=== PATIENT | male | born 1940 | race Caucasian/White ===

== ENCOUNTER 2017-07-12 17:36 | Inpatient (IN) | payer MEDICARE ==
[~2017-07-12] VITALS: Ht 180.3 cm; Wt 94.2 kg
[~2017-07-12 17:36] MED LIST: ASPI81CH PO; ATOR20 PO; Aspir 8181 MG PO; BRILINTA90 MG PO; CALC.25 PO; CLOP75 PO; DIPATR PO; FERR325 PO; GABA600 PO; GLIM2 PO; HEMOTC PR; LISI20 PO; Lotrimin Ultra12 GM EXT; METF500C PO; PIOG15 PO; PROM25 PO; Prilosec Otc20 MG PO; SIMV40 PO; TICA90TA PO; Zocor20 MG PO; Zofran8 MG PO
[2017-07-12 18:40] LABS: BASOPHILS ABSOLUTE AUTO 0.02 K/mm3 (0.00-0.23); BASOPHILS PERCENT AUTO 0 % (0-2); EOSINOPHILS ABSOLUTE AUTO 0.51 K/mm3 (0.00-0.68); EOSINOPHILS PERCENT AUTO 5 % (0-6); Hematocrit 43.8 % (37.0-53.0); IMMATURE GRAN ABSOLUTE AUTO 0.02 K/mm3 (0.00-0.10); IMMATURE GRAN PERCENT AUTO 0 % (0-1); LYMPHOCYTES ABSOLUTE AUTO 2.04 K/mm3 (0.84-5.20); LYMPHOCYTES PERCENT AUTO 19 % (21-46); MONOCYTES ABSOLUTE AUTO 0.78 K/mm3 (0.16-1.47); MONOCYTES PERCENT AUTO 7 % (4-13); Mean Corpuscular HGB 33.7 pg (26.0-34.0); Mean Corpuscular Volume 105 fL (80-100); Mean Platelet Volume 10.1 fL (9.1-12.4); NEUTROPHILS ABSOLUTE AUTO 7.37 K/mm3 (1.96-9.15); NEUTROPHILS PERCENT AUTO 69 % (41-73); Platelet Count 269 K/mm3 (150-400); RDW Coefficient Variation 14.8 % (11.7-14.2); RDW Standard Deviation 57.2 fL (35.1-46.3); Red Blood Cell Count 4.16 M/mm3 (4.30-5.90); White Blood Cell Count 10.74 K/mm3 (4.00-11.30)
[2017-07-12 18:53] LABS: International Normalized Ratio 1.01; Prothrombin Time Results 10.5 Sec (9.7-11.5)
[2017-07-12 19:01] LABS: Alanine Aminotransfer (ALT/SGP 20 U/L (12-78); Albumin, Blood 3.4 g/dL (3.4-5.0); Alk Phos 99 U/L (50-136); Anion Gap 9 mmol/L (6-16); Aspartate Aminotrans (AST/SGOT 19 U/L (12-37); Bilirubin, Total 0.4 mg/dL (0.1-1.0); Blood Urea Nitrogen 19 mg/dL (8-24); Bun/Creatinine Ratio 15.4 (12.0-20.0); CO2, Blood 24 mmol/L (21-32); Chloride, Blood 111 mmol/L (98-108); Creatinine, Blood 1.23 mg/dL (0.60-1.20); Globulin, Blood 3.5 g/dL (2.2-4.0); Glomerular Filtration Rate >60 (60-); Glucose, Blood 73 mg/dL (70-99); Potassium, Blood 3.8 mmol/L (3.5-5.5); Sodium, Blood 144 mmol/L (136-145); Total Protein, Blood 6.9 g/dL (6.4-8.2)
[2017-07-12] MEDS ORDERED: TRAM50 PO (19:05)
[2017-07-13 04:52] LABS: BASOPHILS ABSOLUTE AUTO 0.02 K/mm3 (0.00-0.23); BASOPHILS PERCENT AUTO 0 % (0-2); EOSINOPHILS PERCENT AUTO 4 % (0-6); Hematocrit 41.7 % (37.0-53.0); Hemoglobin 13.3 g/dL (13.5-17.5); IMMATURE GRAN ABSOLUTE AUTO 0.02 K/mm3 (0.00-0.10); IMMATURE GRAN PERCENT AUTO 0 % (0-1); LYMPHOCYTES ABSOLUTE AUTO 2.27 K/mm3 (0.84-5.20); LYMPHOCYTES PERCENT AUTO 25 % (21-46); MONOCYTES PERCENT AUTO 10 % (4-13); Mean Corpuscular HGB 33.8 pg (26.0-34.0); Mean Corpuscular HGB Conc 31.9 g/dL (31.5-36.5); Mean Corpuscular Volume 106 fL (80-100); Mean Platelet Volume 9.9 fL (9.1-12.4); NEUTROPHILS ABSOLUTE AUTO 5.63 K/mm3 (1.96-9.15); NEUTROPHILS PERCENT AUTO 61 % (41-73); Platelet Count 260 K/mm3 (150-400); RDW Coefficient Variation 14.7 % (11.7-14.2); RDW Standard Deviation 57.8 fL (35.1-46.3); Red Blood Cell Count 3.94 M/mm3 (4.30-5.90); White Blood Cell Count 9.24 K/mm3 (4.00-11.30)
[2017-07-13 05:26] LABS: Alanine Aminotransfer (ALT/SGP 15 U/L (12-78); Albumin, Blood 3.2 g/dL (3.4-5.0); Albumin/Globulin Ratio 0.9 (0.8-1.8); Alk Phos 89 U/L (50-136); Anion Gap 6 mmol/L (6-16); Aspartate Aminotrans (AST/SGOT 14 U/L (12-37); Bilirubin, Total 0.5 mg/dL (0.1-1.0); Blood Urea Nitrogen 17 mg/dL (8-24); Bun/Creatinine Ratio 13.8 (12.0-20.0); CO2, Blood 26 mmol/L (21-32); Calcium, Blood 7.8 mg/dL (8.5-10.1); Chloride, Blood 109 mmol/L (98-108); Creatinine, Blood 1.23 mg/dL (0.60-1.20); Globulin, Blood 3.5 g/dL (2.2-4.0); Glomerular Filtration Rate >60 (60-); Glucose, Blood 74 mg/dL (70-99); Potassium, Blood 3.8 mmol/L (3.5-5.5); Sodium, Blood 141 mmol/L (136-145); Total Protein, Blood 6.7 g/dL (6.4-8.2)
[2017-07-14 04:39] LABS: BASOPHILS ABSOLUTE AUTO 0.01 K/mm3 (0.00-0.23); BASOPHILS PERCENT AUTO 0 % (0-2); EOSINOPHILS PERCENT AUTO 0 % (0-6); Hematocrit 40.7 % (37.0-53.0); Hemoglobin 13.1 g/dL (13.5-17.5); IMMATURE GRAN ABSOLUTE AUTO 0.05 K/mm3 (0.00-0.10); IMMATURE GRAN PERCENT AUTO 0 % (0-1); LYMPHOCYTES ABSOLUTE AUTO 0.56 K/mm3 (0.84-5.20); LYMPHOCYTES PERCENT AUTO 5 % (21-46); MONOCYTES ABSOLUTE AUTO 0.35 K/mm3 (0.16-1.47); MONOCYTES PERCENT AUTO 3 % (4-13); Mean Corpuscular HGB 33.4 pg (26.0-34.0); Mean Corpuscular HGB Conc 32.2 g/dL (31.5-36.5); Mean Corpuscular Volume 104 fL (80-100); NEUTROPHILS ABSOLUTE AUTO 11.02 K/mm3 (1.96-9.15); NEUTROPHILS PERCENT AUTO 92 % (41-73); RDW Standard Deviation 53.4 fL (35.1-46.3); Red Blood Cell Count 3.92 M/mm3 (4.30-5.90); White Blood Cell Count 11.99 K/mm3 (4.00-11.30)
[2017-07-14 04:40] LABS: Mean Platelet Volume 9.9 fL (9.1-12.4); Platelet Count 259 K/mm3 (150-400)
[2017-07-14 04:54] LABS: Anion Gap 8 mmol/L (6-16); Blood Urea Nitrogen 17 mg/dL (8-24); Bun/Creatinine Ratio 14.4 (12.0-20.0); CO2, Blood 24 mmol/L (21-32); Calcium, Blood 7.8 mg/dL (8.5-10.1); Chloride, Blood 106 mmol/L (98-108); Creatinine, Blood 1.18 mg/dL (0.60-1.20); Glomerular Filtration Rate >60 (60-); Glucose, Blood 194 mg/dL (70-99); Magnesium, Blood 1.7 mg/dL (1.6-2.4); Potassium, Blood 4.9 mmol/L (3.5-5.5); Sodium, Blood 138 mmol/L (136-145)
== END 2017-07-16 14:11 | DRG 470 ==
LOC: ER 17:36 → SURS 19:20
PROVIDERS: Emergency Medicine; Family Medicine; Internal Medicine; Orthopaedic Surgery
PROC: 8E0YXBZ Computer Assisted Procedure of Lower Extremity (ICD-10-PCS; 2017-07-13)
PROC: 0SRB02Z Replacement of Left Hip Joint with Metal on Polyethylene Synthetic Substitute, Open Approach (ICD-10-PCS; principal; 2017-07-13 15:00)
DX: S72.002A Fracture of unspecified part of neck of left femur, initial encounter for closed fracture (principal); E11.22 Type 2 diabetes mellitus with diabetic chronic kidney disease; E11.51 Type 2 diabetes mellitus with diabetic peripheral angiopathy without gangrene; E78.5 Hyperlipidemia, unspecified; N18.2 Chronic kidney disease, stage 2 (mild); I12.9 Hypertensive chronic kidney disease with stage 1 through stage 4 chronic kidney disease, or unspecified chronic kidney disease; K90.0 Celiac disease; E78.00 Pure hypercholesterolemia, unspecified; G47.00 Insomnia, unspecified; G89.29 Other chronic pain; R25.1 Tremor, unspecified; Z96.89 Presence of other specified functional implants; Z79.82 Long term (current) use of aspirin; Z79.84 Long term (current) use of oral hypoglycemic drugs; Z79.899 Other long term (current) drug therapy; Z88.8 Allergy status to other drugs, medicaments and biological substances
CPT/HCPCS: 36415; 72170; 80048; 80053; 82947; 83735; 83970; 85025; 85610; 85730; 86850; 86900; 86901; 88305; 88311; 93005; 93010; 96374; 96375; 97110; 97163; 97530; 99285; C1713; C1776; G8978; G8979; J0171; J0690; J0735; J1100; J1170; J1650; J1885; J2370; J2405; J2710; J2795; J3010; J7120

== ENCOUNTER → 2017-07-22 | Outpatient (CLI) | payer MEDICARE ==
[~2017-07-22] MED LIST changes: +ACET325 PO; +Durezol5 ML LEFTEYE; +ERGO400 PO; +Flomax0.4 MG PO; +KETO60I LEFTEYE; +Norvasc2.5 MG PO; +Oxycodone-Apap1 EAC3 PO; +PROLENSA3 ML LEFTEYE; +Prednisolone Ace5 ML LEFTEYE; +TRAM50 PO
[2017-07-22 21:32] LABS: Bilirubin, Urine Neg (Neg); Blood, Urine Neg (Neg); Glucose Qualitative, Urine Neg (Neg); Ketones, Urine Neg (Neg); Leukocyte Esterase, Urine Neg (Neg); Nitrite, Urine Neg (Neg); Protein, Urine Neg (Neg); Specific Gravity, Urine 1.015 (1.003-1.022); Urobilinogen, Urine NORM (Normal)
[2017-07-22 21:39] LABS: Appearance, Urine Clear (Clear); Color, Urine Pale Yellow (P-Yellow)
== END | disposition home or self-care (01) ==
LOC: LAB RH 21:21
PROVIDERS: Internal Medicine
DX: N39.0 Urinary tract infection, site not specified (principal)
CPT/HCPCS: 81003; 87086

== ENCOUNTER 2017-08-23 17:52 | Inpatient (IN) | payer MEDICARE ==
[~2017-08-23] VITALS: Ht 177.8 cm; Wt 86.3 kg
[~2017-08-23 17:52] MED LIST changes: -ACET325 PO; -Durezol5 ML LEFTEYE; -ERGO400 PO; -Flomax0.4 MG PO; -KETO60I LEFTEYE; -Norvasc2.5 MG PO; -Oxycodone-Apap1 EAC3 PO; -PROLENSA3 ML LEFTEYE; -Prednisolone Ace5 ML LEFTEYE
[2017-08-23 18:52] LABS: BASOPHILS ABSOLUTE AUTO 0.03 K/mm3 (0.00-0.23); BASOPHILS PERCENT AUTO 0 % (0-2); EOSINOPHILS ABSOLUTE AUTO 0.12 K/mm3 (0.00-0.68); EOSINOPHILS PERCENT AUTO 1 % (0-6); Hematocrit 40.9 % (37.0-53.0); Hemoglobin 12.8 g/dL (13.5-17.5); IMMATURE GRAN ABSOLUTE AUTO 0.05 K/mm3 (0.00-0.10); IMMATURE GRAN PERCENT AUTO 0 % (0-1); LYMPHOCYTES PERCENT AUTO 11 % (21-46); MONOCYTES ABSOLUTE AUTO 0.98 K/mm3 (0.16-1.47); MONOCYTES PERCENT AUTO 7 % (4-13); Mean Corpuscular HGB Conc 31.3 g/dL (31.5-36.5); Mean Corpuscular Volume 102 fL (80-100); Mean Platelet Volume 9.5 fL (9.1-12.4); NEUTROPHILS ABSOLUTE AUTO 11.67 K/mm3 (1.96-9.15); NEUTROPHILS PERCENT AUTO 81 % (41-73); Platelet Count 295 K/mm3 (150-400); RDW Standard Deviation 53.5 fL (35.1-46.3); White Blood Cell Count 14.45 K/mm3 (4.00-11.30)
[2017-08-23] MEDS ORDERED: Oxycodone-Apap1 EAC3 PO (19:08)
[2017-08-23 19:22] LABS: Albumin, Blood 3.6 g/dL (3.4-5.0); Albumin/Globulin Ratio 0.9 (0.8-1.8); Bilirubin, Total 0.4 mg/dL (0.1-1.0); Bun/Creatinine Ratio 9.6 (12.0-20.0); Calcium, Blood 7.7 mg/dL (8.5-10.1); Creatinine, Blood 4.69 mg/dL (0.60-1.20); Globulin, Blood 4.2 g/dL (2.2-4.0); Potassium, Blood 4.4 mmol/L (3.5-5.5); Total Protein, Blood 7.8 g/dL (6.4-8.2)
[2017-08-23] MEDS ORDERED: ERGO400 PO (23:45)
[2017-08-23] MEDS ORDERED: PIOG15 PO (23:48)
[2017-08-23] MEDS ORDERED: KETO60I LEFTEYE (23:49)
[2017-08-23] MEDS ORDERED: Prednisolone Ace5 ML LEFTEYE (23:51)
[2017-08-23] MEDS ORDERED: PROLENSA3 ML LEFTEYE (23:52)
[2017-08-23] MEDS ORDERED: Durezol5 ML LEFTEYE (23:53)
[2017-08-24 05:45] LABS: BASOPHILS ABSOLUTE AUTO 0.03 K/mm3 (0.00-0.23); BASOPHILS PERCENT AUTO 0 % (0-2); EOSINOPHILS ABSOLUTE AUTO 0.47 K/mm3 (0.00-0.68); EOSINOPHILS PERCENT AUTO 4 % (0-6); Hematocrit 37.9 % (37.0-53.0); Hemoglobin 11.9 g/dL (13.5-17.5); IMMATURE GRAN ABSOLUTE AUTO 0.04 K/mm3 (0.00-0.10); IMMATURE GRAN PERCENT AUTO 0 % (0-1); LYMPHOCYTES ABSOLUTE AUTO 1.52 K/mm3 (0.84-5.20); LYMPHOCYTES PERCENT AUTO 12 % (21-46); MONOCYTES ABSOLUTE AUTO 0.97 K/mm3 (0.16-1.47); MONOCYTES PERCENT AUTO 8 % (4-13); Mean Corpuscular HGB 32.1 pg (26.0-34.0); Mean Corpuscular HGB Conc 31.4 g/dL (31.5-36.5); Mean Corpuscular Volume 102 fL (80-100); NEUTROPHILS ABSOLUTE AUTO 9.33 K/mm3 (1.96-9.15); NEUTROPHILS PERCENT AUTO 76 % (41-73); Platelet Count 282 K/mm3 (150-400); RDW Standard Deviation 53.1 fL (35.1-46.3); Red Blood Cell Count 3.71 M/mm3 (4.30-5.90); White Blood Cell Count 12.36 K/mm3 (4.00-11.30)
[2017-08-24 06:12] LABS: Albumin, Blood 3.2 g/dL (3.4-5.0); Albumin/Globulin Ratio 0.8 (0.8-1.8); Bilirubin, Total 0.3 mg/dL (0.1-1.0); Bun/Creatinine Ratio 12.6 (12.0-20.0); Calcium, Blood 7.6 mg/dL (8.5-10.1); Creatinine, Blood 3.65 mg/dL (0.60-1.20); Globulin, Blood 3.8 g/dL (2.2-4.0)
[2017-08-24 06:43] LABS: Potassium, Urine, Random 26.3 mmol/L (12.0-75.0)
[2017-08-24 11:32] LABS: Source, Urine Clean Catch
[2017-08-24 11:35] LABS: Blood, Urine Neg (Neg); Glucose Qualitative, Urine Neg (Neg); Ketones, Urine Neg (Neg); Leukocyte Esterase, Urine 1+ (Neg); Nitrite, Urine Neg (Neg); Protein, Urine 2+ (Neg); Specific Gravity, Urine 1.025 (1.003-1.022); Urobilinogen, Urine NORM (Normal)
[2017-08-24 12:20] LABS: Appearance, Urine Clear (Clear); Bilirubin, Urine 1+ (Neg); Color, Urine Yellow (P-Yellow)
[2017-08-24 12:24] LABS: Red Blood Cells, Urine Not Seen /hpf (0-2); White Blood Cells, Urine 0-2 /hpf (0-5)
[2017-08-24 12:25] LABS: Amorphous Light (0-Heavy); Bacteria Few /hpf; Granular Casts 0-2 /lpf (0); Squamous Epithelial Cells Few /hpf (Few)
[2017-08-25 08:55] LABS: BASOPHILS ABSOLUTE AUTO 0.02 K/mm3 (0.00-0.23); BASOPHILS PERCENT AUTO 0 % (0-2); EOSINOPHILS ABSOLUTE AUTO 0.25 K/mm3 (0.00-0.68); EOSINOPHILS PERCENT AUTO 2 % (0-6); Hematocrit 35.6 % (37.0-53.0); Hemoglobin 11.5 g/dL (13.5-17.5); IMMATURE GRAN ABSOLUTE AUTO 0.04 K/mm3 (0.00-0.10); IMMATURE GRAN PERCENT AUTO 0 % (0-1); LYMPHOCYTES ABSOLUTE AUTO 1.15 K/mm3 (0.84-5.20); LYMPHOCYTES PERCENT AUTO 11 % (21-46); MONOCYTES ABSOLUTE AUTO 1.08 K/mm3 (0.16-1.47); MONOCYTES PERCENT AUTO 10 % (4-13); Mean Corpuscular HGB 31.6 pg (26.0-34.0); Mean Corpuscular HGB Conc 32.3 g/dL (31.5-36.5); Mean Platelet Volume 9.9 fL (9.1-12.4); NEUTROPHILS ABSOLUTE AUTO 7.88 K/mm3 (1.96-9.15); NEUTROPHILS PERCENT AUTO 76 % (41-73); Platelet Count 274 K/mm3 (150-400); RDW Coefficient Variation 13.6 % (11.7-14.2); RDW Standard Deviation 49.1 fL (35.1-46.3); Red Blood Cell Count 3.64 M/mm3 (4.30-5.90); White Blood Cell Count 10.42 K/mm3 (4.00-11.30)
[2017-08-25 09:09] LABS: Calcium, Blood 8.1 mg/dL (8.5-10.1); Potassium, Blood 4.6 mmol/L (3.5-5.5)
[2017-08-25 09:10] LABS: Mean Corpuscular Volume 98 fL (80-100)
[2017-08-26 08:22] LABS: Calcium, Blood 8.9 mg/dL (8.5-10.1); Creatinine, Blood 1.47 mg/dL (0.60-1.20); Potassium, Blood 4.9 mmol/L (3.5-5.5)
[2017-08-26] MEDS ORDERED: ACET325 PO (13:53)
[2017-08-26] MEDS ORDERED: GLIM2 PO (13:53)
[2017-08-26] MEDS ORDERED: Norvasc2.5 MG PO (13:54)
[2017-08-26] MEDS ORDERED: Flomax0.4 MG PO (13:54)
== END 2017-08-26 14:35 | disposition home health service (06) | DRG 684 ==
LOC: ER 17:52 → MEDS 20:26 → ENPENDDIS 08-26 12:00 → MEDS 08-26 14:35
PROVIDERS: Emergency Medicine; Family Medicine; Internal Medicine
DX: N17.9 Acute kidney failure, unspecified (principal); E11.649 Type 2 diabetes mellitus with hypoglycemia without coma; G20 Parkinson's disease; D64.9 Anemia, unspecified; N40.1 Benign prostatic hyperplasia with lower urinary tract symptoms; R29.6 Repeated falls; R33.8 Other retention of urine; Z91.81 History of falling; Z88.8 Allergy status to other drugs, medicaments and biological substances; Z91.018 Allergy to other foods; Z79.84 Long term (current) use of oral hypoglycemic drugs; Z79.82 Long term (current) use of aspirin; Z79.899 Other long term (current) drug therapy; Z87.891 Personal history of nicotine dependence
CPT/HCPCS: 36415; 51702; 51798; 71045; 76770; 80048; 80053; 81001; 82436; 82947; 83930; 83935; 84133; 84300; 85025; 87086; 93005; 93010; 97116; 97162; 97165; 97530; 97535; 99285; G8978; G8979; G8987; G8988; J1650; J3010

== ENCOUNTER → 2022-01-14 | Day surgery (SDC) | payer MEDICARE ==
[~2022-01-14] MED LIST changes: +ACET325 PO; +Durezol5 ML LEFTEYE; +ERGO400 PO; +Flomax0.4 MG PO; +KETO60I LEFTEYE; +Norvasc2.5 MG PO; +Oxycodone-Apap1 EAC3 PO; +PROLENSA3 ML LEFTEYE; +Prednisolone Ace5 ML LEFTEYE
== END ==
LOC: WOUND 02:38
DX: E11.622 Type 2 diabetes mellitus with other skin ulcer (principal); L97.822 Non-pressure chronic ulcer of other part of left lower leg with fat layer exposed; E11.21 Type 2 diabetes mellitus with diabetic nephropathy; E11.51 Type 2 diabetes mellitus with diabetic peripheral angiopathy without gangrene; I10 Essential (primary) hypertension; Z87.81 Personal history of (healed) traumatic fracture; Z88.8 Allergy status to other drugs, medicaments and biological substances; Z91.018 Allergy to other foods; Z87.891 Personal history of nicotine dependence
CPT/HCPCS: A9270; G0463

== ENCOUNTER 2022-01-19 05:44 | Day surgery (SDC) | payer MEDICARE | END 2022-01-19 23:27 | disposition home or self-care (01) | LOC: WOUND 05:44 | DX: E11.622 Type 2 diabetes mellitus with other skin ulcer (principal); L97.322 Non-pressure chronic ulcer of left ankle with fat layer exposed; E11.21 Type 2 diabetes mellitus with diabetic nephropathy; E11.51 Type 2 diabetes mellitus with diabetic peripheral angiopathy without gangrene; I10 Essential (primary) hypertension; Z87.81 Personal history of (healed) traumatic fracture | CPT/HCPCS: A9270; G0463 ==

== ENCOUNTER 2022-01-26 02:28 | Day surgery (SDC) | payer MEDICARE | END 2022-01-26 23:14 | disposition home or self-care (01) | LOC: WOUND 02:28 | DX: E11.622 Type 2 diabetes mellitus with other skin ulcer (principal); E11.621 Type 2 diabetes mellitus with foot ulcer; E11.51 Type 2 diabetes mellitus with diabetic peripheral angiopathy without gangrene; Z87.81 Personal history of (healed) traumatic fracture; E11.21 Type 2 diabetes mellitus with diabetic nephropathy; I10 Essential (primary) hypertension; L97.322 Non-pressure chronic ulcer of left ankle with fat layer exposed | CPT/HCPCS: A9270; G0463 ==

== ENCOUNTER 2022-02-09 03:50 | Day surgery (SDC) | payer MEDICARE | END 2022-02-09 22:59 | disposition home or self-care (01) | LOC: WOUND 03:50 | DX: E11.622 Type 2 diabetes mellitus with other skin ulcer (principal); L97.322 Non-pressure chronic ulcer of left ankle with fat layer exposed; L97.922 Non-pressure chronic ulcer of unspecified part of left lower leg with fat layer exposed; E11.51 Type 2 diabetes mellitus with diabetic peripheral angiopathy without gangrene; E11.21 Type 2 diabetes mellitus with diabetic nephropathy; I10 Essential (primary) hypertension; Z87.81 Personal history of (healed) traumatic fracture | CPT/HCPCS: A9270 ==

== ENCOUNTER 2022-02-13 01:05 | Day surgery (SDC) | payer MEDICARE | END 2022-02-13 22:50 | disposition home or self-care (01) | LOC: WOUND 01:05 | DX: E11.622 Type 2 diabetes mellitus with other skin ulcer (principal); E11.51 Type 2 diabetes mellitus with diabetic peripheral angiopathy without gangrene; E11.21 Type 2 diabetes mellitus with diabetic nephropathy; I10 Essential (primary) hypertension; Z87.81 Personal history of (healed) traumatic fracture; L98.499 Non-pressure chronic ulcer of skin of other sites with unspecified severity ==

== ENCOUNTER 2022-02-16 00:30 | Day surgery (SDC) | payer MEDICARE | END 2022-02-17 00:33 | disposition home or self-care (01) | LOC: WOUND 00:30 | PROC: 2W1RX6Z Compression of Left Lower Leg using Pressure Dressing (ICD-10-PCS; principal; 2022-02-16) | DX: E11.51 Type 2 diabetes mellitus with diabetic peripheral angiopathy without gangrene (principal); L98.492 Non-pressure chronic ulcer of skin of other sites with fat layer exposed; I70.25 Atherosclerosis of native arteries of other extremities with ulceration; I10 Essential (primary) hypertension; E11.21 Type 2 diabetes mellitus with diabetic nephropathy; Z87.81 Personal history of (healed) traumatic fracture | CPT/HCPCS: A9270 ==

== ENCOUNTER 2022-02-23 01:28 | Day surgery (SDC) | payer MEDICARE | END 2022-02-23 23:16 | disposition home or self-care (01) | LOC: WOUND 01:28 | DX: E11.622 Type 2 diabetes mellitus with other skin ulcer (principal); L97.322 Non-pressure chronic ulcer of left ankle with fat layer exposed; E11.51 Type 2 diabetes mellitus with diabetic peripheral angiopathy without gangrene; E11.21 Type 2 diabetes mellitus with diabetic nephropathy; I10 Essential (primary) hypertension; Z87.81 Personal history of (healed) traumatic fracture | CPT/HCPCS: A9270 ==

== ENCOUNTER 2022-03-03 01:54 | Day surgery (SDC) | payer MEDICARE | END 2022-03-03 23:52 | disposition home or self-care (01) | LOC: WOUND 01:54 | DX: E11.622 Type 2 diabetes mellitus with other skin ulcer (principal); L97.829 Non-pressure chronic ulcer of other part of left lower leg with unspecified severity; E11.51 Type 2 diabetes mellitus with diabetic peripheral angiopathy without gangrene; E11.21 Type 2 diabetes mellitus with diabetic nephropathy; I10 Essential (primary) hypertension; Z87.81 Personal history of (healed) traumatic fracture ==

== ENCOUNTER 2022-03-09 01:11 | Day surgery (SDC) | payer MEDICARE | END 2022-03-09 23:59 | disposition home or self-care (01) | LOC: WOUND 01:11 | DX: E11.622 Type 2 diabetes mellitus with other skin ulcer (principal); E11.51 Type 2 diabetes mellitus with diabetic peripheral angiopathy without gangrene; Z87.81 Personal history of (healed) traumatic fracture; E11.21 Type 2 diabetes mellitus with diabetic nephropathy; I10 Essential (primary) hypertension ==

== ENCOUNTER 2022-03-16 00:25 | Day surgery (SDC) | payer MEDICARE | END 2022-03-16 23:30 | disposition home or self-care (01) | LOC: WOUND 00:25 | DX: E11.622 Type 2 diabetes mellitus with other skin ulcer (principal); E11.51 Type 2 diabetes mellitus with diabetic peripheral angiopathy without gangrene; Z87.81 Personal history of (healed) traumatic fracture; E11.21 Type 2 diabetes mellitus with diabetic nephropathy; I10 Essential (primary) hypertension; L97.822 Non-pressure chronic ulcer of other part of left lower leg with fat layer exposed | CPT/HCPCS: A9270 ==

== ENCOUNTER 2022-03-30 01:46 | Day surgery (SDC) | payer MEDICARE | END 2022-03-30 22:56 | disposition home or self-care (01) | LOC: WOUND 01:46 | DX: E11.622 Type 2 diabetes mellitus with other skin ulcer (principal); L97.322 Non-pressure chronic ulcer of left ankle with fat layer exposed; E11.51 Type 2 diabetes mellitus with diabetic peripheral angiopathy without gangrene; E11.21 Type 2 diabetes mellitus with diabetic nephropathy; I10 Essential (primary) hypertension; Z87.81 Personal history of (healed) traumatic fracture | CPT/HCPCS: A9270 ==

== ENCOUNTER 2022-04-06 01:56 | Day surgery (SDC) | payer MEDICARE | END 2022-04-06 23:29 | disposition home or self-care (01) | LOC: WOUND 01:56 | DX: E11.622 Type 2 diabetes mellitus with other skin ulcer (principal); L97.322 Non-pressure chronic ulcer of left ankle with fat layer exposed; L97.812 Non-pressure chronic ulcer of other part of right lower leg with fat layer exposed; E11.21 Type 2 diabetes mellitus with diabetic nephropathy; E11.51 Type 2 diabetes mellitus with diabetic peripheral angiopathy without gangrene; I10 Essential (primary) hypertension; Z87.81 Personal history of (healed) traumatic fracture | CPT/HCPCS: A9270; G0463 ==

== ENCOUNTER 2022-04-13 02:43 | Day surgery (SDC) | payer MEDICARE | END 2022-04-13 23:23 | disposition home or self-care (01) | LOC: WOUND 02:43 | DX: E11.622 Type 2 diabetes mellitus with other skin ulcer (principal); L97.812 Non-pressure chronic ulcer of other part of right lower leg with fat layer exposed; L97.322 Non-pressure chronic ulcer of left ankle with fat layer exposed; E11.51 Type 2 diabetes mellitus with diabetic peripheral angiopathy without gangrene; E11.21 Type 2 diabetes mellitus with diabetic nephropathy; I10 Essential (primary) hypertension; Z87.81 Personal history of (healed) traumatic fracture | CPT/HCPCS: A9270 ==

== ENCOUNTER 2022-04-20 02:45 | Day surgery (SDC) | payer MEDICARE | END 2022-04-20 23:09 | disposition home or self-care (01) | LOC: WOUND 02:45 | DX: E11.622 Type 2 diabetes mellitus with other skin ulcer (principal); L97.322 Non-pressure chronic ulcer of left ankle with fat layer exposed; L97.812 Non-pressure chronic ulcer of other part of right lower leg with fat layer exposed; E11.621 Type 2 diabetes mellitus with foot ulcer; L97.522 Non-pressure chronic ulcer of other part of left foot with fat layer exposed; E11.51 Type 2 diabetes mellitus with diabetic peripheral angiopathy without gangrene; E11.21 Type 2 diabetes mellitus with diabetic nephropathy; I10 Essential (primary) hypertension | CPT/HCPCS: A9270 ==

== ENCOUNTER 2022-04-27 00:21 | Day surgery (SDC) | payer MEDICARE ==
[2022-04-28] MEDS ORDERED: FOSAMAX70 MG PO (14:47)
[2022-04-28] MEDS ORDERED: CARBIDOPA-LEVO1 EA15 PO (14:48)
[2022-04-28] MEDS ORDERED: CALCITRIOL0.25 MC4 PO (14:49)
[2022-04-28] MEDS ORDERED: ERGOCAL62.5 MC1 PO (14:50)
[2022-04-28] MEDS ORDERED: LISI20 PO (14:51)
[2022-04-28] MEDS ORDERED: MULVITA PO (14:52)
[2022-04-28] MEDS ORDERED: MUPIROCIN1 G1 TOP (14:53)
== END 2022-04-27 22:47 | disposition home or self-care (01) ==
LOC: WOUND 00:21
DX: E11.622 Type 2 diabetes mellitus with other skin ulcer (principal); E11.621 Type 2 diabetes mellitus with foot ulcer; L97.812 Non-pressure chronic ulcer of other part of right lower leg with fat layer exposed; L97.522 Non-pressure chronic ulcer of other part of left foot with fat layer exposed; I10 Essential (primary) hypertension; I87.2 Venous insufficiency (chronic) (peripheral); E11.51 Type 2 diabetes mellitus with diabetic peripheral angiopathy without gangrene
CPT/HCPCS: A9270

== ENCOUNTER 2022-04-29 02:34 | Day surgery (SDC) | payer MEDICARE ==
[~2022-04-29 02:34] MED LIST changes: +CALCITRIOL0.25 MC4 PO; +CARBIDOPA-LEVO1 EA15 PO; +ERGOCAL62.5 MC1 PO; +FOSAMAX70 MG PO; +MULVITA PO; +MUPIROCIN1 G1 TOP
== END 2022-04-29 23:42 | disposition home or self-care (01) ==
LOC: WOUND
DX: E11.622 Type 2 diabetes mellitus with other skin ulcer (principal); E11.51 Type 2 diabetes mellitus with diabetic peripheral angiopathy without gangrene; Z87.891 Personal history of nicotine dependence; I10 Essential (primary) hypertension; I87.2 Venous insufficiency (chronic) (peripheral); E11.21 Type 2 diabetes mellitus with diabetic nephropathy
CPT/HCPCS: G0463

== ENCOUNTER 2022-05-01 01:31 | Day surgery (SDC) | payer MEDICARE | END 2022-05-01 23:26 | disposition home or self-care (01) | LOC: WOUND | DX: E11.622 Type 2 diabetes mellitus with other skin ulcer (principal); E11.51 Type 2 diabetes mellitus with diabetic peripheral angiopathy without gangrene; E11.21 Type 2 diabetes mellitus with diabetic nephropathy; I10 Essential (primary) hypertension; I87.2 Venous insufficiency (chronic) (peripheral); Z87.81 Personal history of (healed) traumatic fracture | CPT/HCPCS: G0463 ==

== ENCOUNTER 2022-05-04 02:58 | Day surgery (SDC) | payer MEDICARE | END 2022-05-04 22:56 | disposition home or self-care (01) | LOC: WOUND | DX: E11.621 Type 2 diabetes mellitus with foot ulcer (principal); L97.522 Non-pressure chronic ulcer of other part of left foot with fat layer exposed; E11.622 Type 2 diabetes mellitus with other skin ulcer; E11.51 Type 2 diabetes mellitus with diabetic peripheral angiopathy without gangrene; I10 Essential (primary) hypertension; Z87.81 Personal history of (healed) traumatic fracture; L97.812 Non-pressure chronic ulcer of other part of right lower leg with fat layer exposed | CPT/HCPCS: A9270 ==

== ENCOUNTER → 2022-05-05 | Outpatient (CLI) | payer MEDICARE ==
[2022-05-05 19:36] LABS: Bun/Creatinine Ratio 18.2 (12.0-20.0); Creatinine, Blood 1.43 mg/dL (0.60-1.20); Potassium, Blood 4.6 mmol/L (3.5-5.5)
== END ==
LOC: LAB SHORT 16:00 → LAB 16:00
PROVIDERS: Family Medicine
DX: N17.9 Acute kidney failure, unspecified (principal)
CPT/HCPCS: 80048

== ENCOUNTER 2022-05-06 13:59 | Day surgery (SDC) | payer MEDICARE | END 2022-05-06 23:24 | disposition home or self-care (01) | LOC: WOUND 13:59 | DX: E11.622 Type 2 diabetes mellitus with other skin ulcer (principal); L98.499 Non-pressure chronic ulcer of skin of other sites with unspecified severity; E11.51 Type 2 diabetes mellitus with diabetic peripheral angiopathy without gangrene; E11.21 Type 2 diabetes mellitus with diabetic nephropathy; I10 Essential (primary) hypertension; I87.2 Venous insufficiency (chronic) (peripheral); Z87.81 Personal history of (healed) traumatic fracture | CPT/HCPCS: G0463 ==

== ENCOUNTER 2022-05-08 00:56 | Day surgery (SDC) | payer MEDICARE | END 2022-05-08 23:13 | disposition home or self-care (01) | LOC: WOUND 00:56 | DX: E11.51 Type 2 diabetes mellitus with diabetic peripheral angiopathy without gangrene (principal); E11.622 Type 2 diabetes mellitus with other skin ulcer; Z87.81 Personal history of (healed) traumatic fracture; E11.21 Type 2 diabetes mellitus with diabetic nephropathy; I10 Essential (primary) hypertension; I87.2 Venous insufficiency (chronic) (peripheral) | CPT/HCPCS: A9270; G0463 ==

== ENCOUNTER 2022-05-11 01:48 | Day surgery (SDC) | payer MEDICARE | END 2022-05-11 23:35 | disposition home or self-care (01) | LOC: WOUND 01:48 | DX: E11.622 Type 2 diabetes mellitus with other skin ulcer (principal); E11.21 Type 2 diabetes mellitus with diabetic nephropathy; I10 Essential (primary) hypertension; E11.51 Type 2 diabetes mellitus with diabetic peripheral angiopathy without gangrene; Z87.81 Personal history of (healed) traumatic fracture; I87.2 Venous insufficiency (chronic) (peripheral) | CPT/HCPCS: A9270; G0463 ==

== ENCOUNTER 2022-05-13 02:27 | Day surgery (SDC) | payer MEDICARE | END 2022-05-13 23:30 | disposition home or self-care (01) | LOC: WOUND 02:27 | DX: E11.622 Type 2 diabetes mellitus with other skin ulcer (principal); E11.51 Type 2 diabetes mellitus with diabetic peripheral angiopathy without gangrene; Z87.81 Personal history of (healed) traumatic fracture; E11.21 Type 2 diabetes mellitus with diabetic nephropathy; I10 Essential (primary) hypertension; I87.2 Venous insufficiency (chronic) (peripheral) | CPT/HCPCS: G0463 ==

== ENCOUNTER 2022-05-15 00:51 | Day surgery (SDC) | payer MEDICARE | END 2022-05-15 22:50 | disposition home or self-care (01) | LOC: WOUND 00:51 | DX: E11.622 Type 2 diabetes mellitus with other skin ulcer (principal); E11.51 Type 2 diabetes mellitus with diabetic peripheral angiopathy without gangrene; E11.21 Type 2 diabetes mellitus with diabetic nephropathy; I10 Essential (primary) hypertension; I87.2 Venous insufficiency (chronic) (peripheral); Z87.81 Personal history of (healed) traumatic fracture | CPT/HCPCS: G0463 ==

== ENCOUNTER 2022-05-20 01:46 | Day surgery (SDC) | payer MEDICARE | END 2022-05-20 23:08 | disposition home or self-care (01) | LOC: WOUND 01:46 | DX: E11.622 Type 2 diabetes mellitus with other skin ulcer (principal); E11.51 Type 2 diabetes mellitus with diabetic peripheral angiopathy without gangrene; E11.21 Type 2 diabetes mellitus with diabetic nephropathy; Z87.81 Personal history of (healed) traumatic fracture; I10 Essential (primary) hypertension; I87.2 Venous insufficiency (chronic) (peripheral) | CPT/HCPCS: G0463 ==

== ENCOUNTER 2022-06-03 06:13 | Day surgery (SDC) | payer MEDICARE | END 2022-06-03 23:01 | disposition home or self-care (01) | LOC: WOUND 06:13 | DX: E11.622 Type 2 diabetes mellitus with other skin ulcer (principal); L97.812 Non-pressure chronic ulcer of other part of right lower leg with fat layer exposed; L97.522 Non-pressure chronic ulcer of other part of left foot with fat layer exposed; E11.621 Type 2 diabetes mellitus with foot ulcer; L97.822 Non-pressure chronic ulcer of other part of left lower leg with fat layer exposed; E11.51 Type 2 diabetes mellitus with diabetic peripheral angiopathy without gangrene; E11.21 Type 2 diabetes mellitus with diabetic nephropathy; I10 Essential (primary) hypertension; I87.2 Venous insufficiency (chronic) (peripheral) | CPT/HCPCS: A9270; G0463 ==

== ENCOUNTER 2022-06-10 01:53 | Day surgery (SDC) | payer MEDICARE | END 2022-06-10 22:54 | disposition home or self-care (01) | LOC: WOUND 01:53 | DX: E11.622 Type 2 diabetes mellitus with other skin ulcer (principal); E11.621 Type 2 diabetes mellitus with foot ulcer; L97.812 Non-pressure chronic ulcer of other part of right lower leg with fat layer exposed; L97.822 Non-pressure chronic ulcer of other part of left lower leg with fat layer exposed; E11.51 Type 2 diabetes mellitus with diabetic peripheral angiopathy without gangrene; Z87.81 Personal history of (healed) traumatic fracture; E11.21 Type 2 diabetes mellitus with diabetic nephropathy; I10 Essential (primary) hypertension | CPT/HCPCS: A9270 ==

== ENCOUNTER 2022-06-17 01:17 | Day surgery (SDC) | payer MEDICARE | END 2022-06-17 23:58 | disposition home or self-care (01) | LOC: WOUND 01:17 | DX: E11.622 Type 2 diabetes mellitus with other skin ulcer (principal); L97.812 Non-pressure chronic ulcer of other part of right lower leg with fat layer exposed; I87.2 Venous insufficiency (chronic) (peripheral); L08.9 Local infection of the skin and subcutaneous tissue, unspecified; Z87.81 Personal history of (healed) traumatic fracture; E11.21 Type 2 diabetes mellitus with diabetic nephropathy; E11.51 Type 2 diabetes mellitus with diabetic peripheral angiopathy without gangrene; I10 Essential (primary) hypertension; L97.822 Non-pressure chronic ulcer of other part of left lower leg with fat layer exposed | CPT/HCPCS: A9270 ==

== ENCOUNTER 2022-07-01 00:54 | Day surgery (SDC) | payer MEDICARE | END 2022-07-01 23:09 | disposition home or self-care (01) | LOC: WOUND 00:54 | DX: E11.622 Type 2 diabetes mellitus with other skin ulcer (principal); E11.621 Type 2 diabetes mellitus with foot ulcer; L97.812 Non-pressure chronic ulcer of other part of right lower leg with fat layer exposed; L97.822 Non-pressure chronic ulcer of other part of left lower leg with fat layer exposed; E11.51 Type 2 diabetes mellitus with diabetic peripheral angiopathy without gangrene; Z87.81 Personal history of (healed) traumatic fracture; E11.21 Type 2 diabetes mellitus with diabetic nephropathy; I10 Essential (primary) hypertension; I87.2 Venous insufficiency (chronic) (peripheral) | CPT/HCPCS: A9270; G0463 ==

== ENCOUNTER 2022-07-08 04:14 | Day surgery (SDC) | payer MEDICARE | END 2022-07-08 23:06 | disposition home or self-care (01) | LOC: WOUND 04:14 | DX: E11.621 Type 2 diabetes mellitus with foot ulcer (principal); E11.622 Type 2 diabetes mellitus with other skin ulcer; L97.812 Non-pressure chronic ulcer of other part of right lower leg with fat layer exposed; L97.822 Non-pressure chronic ulcer of other part of left lower leg with fat layer exposed; E11.21 Type 2 diabetes mellitus with diabetic nephropathy; I10 Essential (primary) hypertension; E11.51 Type 2 diabetes mellitus with diabetic peripheral angiopathy without gangrene; I87.2 Venous insufficiency (chronic) (peripheral); Z87.81 Personal history of (healed) traumatic fracture; L97.522 Non-pressure chronic ulcer of other part of left foot with fat layer exposed | CPT/HCPCS: A9270; G0463 ==

== ENCOUNTER 2022-07-15 05:33 | Day surgery (SDC) | payer MEDICARE | END 2022-07-15 23:03 | disposition home or self-care (01) | LOC: WOUND 05:33 | DX: E11.622 Type 2 diabetes mellitus with other skin ulcer (principal); E11.621 Type 2 diabetes mellitus with foot ulcer; E11.21 Type 2 diabetes mellitus with diabetic nephropathy; L97.322 Non-pressure chronic ulcer of left ankle with fat layer exposed; L97.312 Non-pressure chronic ulcer of right ankle with fat layer exposed; I73.9 Peripheral vascular disease, unspecified; I10 Essential (primary) hypertension; Z87.81 Personal history of (healed) traumatic fracture | CPT/HCPCS: G0463 ==

== ENCOUNTER 2022-07-22 01:41 | Day surgery (SDC) | payer MEDICARE | END 2022-07-22 22:53 | disposition home or self-care (01) | LOC: WOUND 01:41 | DX: E11.622 Type 2 diabetes mellitus with other skin ulcer (principal); E11.621 Type 2 diabetes mellitus with foot ulcer; L97.812 Non-pressure chronic ulcer of other part of right lower leg with fat layer exposed; L97.822 Non-pressure chronic ulcer of other part of left lower leg with fat layer exposed; I73.9 Peripheral vascular disease, unspecified; Z87.81 Personal history of (healed) traumatic fracture; E11.21 Type 2 diabetes mellitus with diabetic nephropathy; I10 Essential (primary) hypertension; I87.2 Venous insufficiency (chronic) (peripheral) | CPT/HCPCS: A9270; G0463 ==

== ENCOUNTER 2022-08-05 00:44 | Day surgery (SDC) | payer MEDICARE | END 2022-08-05 22:52 | disposition home or self-care (01) | LOC: WOUND 00:44 | DX: E11.621 Type 2 diabetes mellitus with foot ulcer (principal); L97.812 Non-pressure chronic ulcer of other part of right lower leg with fat layer exposed; L97.822 Non-pressure chronic ulcer of other part of left lower leg with fat layer exposed; E11.21 Type 2 diabetes mellitus with diabetic nephropathy; I10 Essential (primary) hypertension; I87.2 Venous insufficiency (chronic) (peripheral); Z87.81 Personal history of (healed) traumatic fracture | CPT/HCPCS: A9270; G0463 ==

== ENCOUNTER 2022-08-19 00:39 | Day surgery (SDC) | payer MEDICARE | END 2022-08-19 23:29 | disposition home or self-care (01) | LOC: WOUND 00:39 | DX: E11.622 Type 2 diabetes mellitus with other skin ulcer (principal); L97.822 Non-pressure chronic ulcer of other part of left lower leg with fat layer exposed; L97.812 Non-pressure chronic ulcer of other part of right lower leg with fat layer exposed; E11.621 Type 2 diabetes mellitus with foot ulcer; E11.51 Type 2 diabetes mellitus with diabetic peripheral angiopathy without gangrene; E11.21 Type 2 diabetes mellitus with diabetic nephropathy; I10 Essential (primary) hypertension; I87.2 Venous insufficiency (chronic) (peripheral); Z87.81 Personal history of (healed) traumatic fracture | CPT/HCPCS: A9270; G0463 ==

== ENCOUNTER 2022-08-26 01:26 | Day surgery (SDC) | payer MEDICARE | END 2022-08-26 22:46 | disposition home or self-care (01) | LOC: WOUND 01:26 | DX: E11.622 Type 2 diabetes mellitus with other skin ulcer (principal); L97.822 Non-pressure chronic ulcer of other part of left lower leg with fat layer exposed; I87.2 Venous insufficiency (chronic) (peripheral); S80.219A Abrasion, unspecified knee, initial encounter; E11.621 Type 2 diabetes mellitus with foot ulcer; L97.812 Non-pressure chronic ulcer of other part of right lower leg with fat layer exposed; E11.51 Type 2 diabetes mellitus with diabetic peripheral angiopathy without gangrene; Z87.81 Personal history of (healed) traumatic fracture; E11.21 Type 2 diabetes mellitus with diabetic nephropathy; I10 Essential (primary) hypertension | CPT/HCPCS: A9270; G0463 ==

== ENCOUNTER 2022-08-27 21:52 | Inpatient (IN) | payer MEDICARE ==
[~2022-08-27] VITALS: Ht 188 cm; Wt 77.9 kg
[2022-08-27 23:02] LABS: Influenza A, PCR NEGATIVE (NEGATIVE); Influenza B, PCR NEGATIVE (NEGATIVE); Resp Syncytial Virus, PCR NEGATIVE (NEGATIVE); SARS-Cov-2 (COVID-19) PCR, MMC NEGATIVE (NEGATIVE)
[2022-08-27 23:15] LABS: BASOPHILS ABSOLUTE AUTO 0.02 K/mm3 (0.00-0.23); BASOPHILS PERCENT AUTO 0 % (0-2); EOSINOPHILS ABSOLUTE AUTO 0.14 K/mm3 (0.00-0.68); EOSINOPHILS PERCENT AUTO 2 % (0-6); Hematocrit 31.7 % (37.0-53.0); Hemoglobin 10.2 g/dL (13.5-17.5); IMMATURE GRAN ABSOLUTE AUTO 0.03 K/mm3 (0.00-0.10); IMMATURE GRAN PERCENT AUTO 0 % (0-1); LYMPHOCYTES ABSOLUTE AUTO 0.78 K/mm3 (0.84-5.20); LYMPHOCYTES PERCENT AUTO 8 % (21-46); MONOCYTES ABSOLUTE AUTO 0.38 K/mm3 (0.16-1.47); MONOCYTES PERCENT AUTO 4 % (4-13); Mean Corpuscular HGB 29.1 pg (26.0-34.0); Mean Corpuscular HGB Conc 32.2 g/dL (31.5-36.5); Mean Corpuscular Volume 91 fL (80-100); Mean Platelet Volume 9.1 fL (9.1-12.4); NEUTROPHILS ABSOLUTE AUTO 8.27 K/mm3 (1.96-9.15); NEUTROPHILS PERCENT AUTO 86 % (41-73); Platelet Count 167 K/mm3 (150-400); RDW Standard Deviation 62.4 fL (35.1-46.3); White Blood Cell Count 9.62 K/mm3 (4.00-11.30)
[2022-08-27 23:42] LABS: Magnesium, Blood 1.6 mg/dL (1.6-2.4)
[2022-08-27 23:46] LABS: Thyroid Stimulating Hormone 4.14 uIU/mL (0.360-4.800)
[2022-08-27 23:58] LABS: Albumin, Blood 1.8 g/dL (3.4-5.0); Albumin/Globulin Ratio 0.4 (0.8-1.8); Bilirubin, Total 0.5 mg/dL (0.1-1.0); Bun/Creatinine Ratio 23.7 (12.0-20.0); Calcium, Blood 8.2 mg/dL (8.5-10.1); Creatinine, Blood 1.56 mg/dL (0.60-1.20); Globulin, Blood 4.6 g/dL (2.2-4.0); Potassium, Blood 3.9 mmol/L (3.5-5.5); Total Protein, Blood 6.4 g/dL (6.4-8.2)
[2022-08-28 00:15] LABS: Source, Urine Clean Catch
[2022-08-28 00:35] LABS: Bilirubin, Urine Neg (Neg); Blood, Urine 2+ (Neg); Glucose Qualitative, Urine Neg (Neg); Ketones, Urine Neg (Neg); Leukocyte Esterase, Urine Neg (Neg); Nitrite, Urine Neg (Neg); Protein, Urine 2+ (Neg); Urobilinogen, Urine NORM (Normal)
[2022-08-28 00:48] LABS: Appearance, Urine Clear (Clear); Color, Urine Yellow (P-Yellow)
[2022-08-28 00:50] LABS: Bacteria Rare /hpf; Granular Casts 0-2 /lpf (0); Squamous Epithelial Cells Not Seen /hpf (Few); White Blood Cells, Urine 0-2 /hpf (0-5)
[2022-08-28 05:34] LABS: BASOPHILS ABSOLUTE AUTO 0.02 K/mm3 (0.00-0.23); BASOPHILS PERCENT AUTO 0 % (0-2); EOSINOPHILS ABSOLUTE AUTO 0.12 K/mm3 (0.00-0.68); EOSINOPHILS PERCENT AUTO 1 % (0-6); Hematocrit 30.2 % (37.0-53.0); Hemoglobin 9.6 g/dL (13.5-17.5); IMMATURE GRAN ABSOLUTE AUTO 0.04 K/mm3 (0.00-0.10); IMMATURE GRAN PERCENT AUTO 0 % (0-1); LYMPHOCYTES ABSOLUTE AUTO 0.73 K/mm3 (0.84-5.20); LYMPHOCYTES PERCENT AUTO 7 % (21-46); MONOCYTES ABSOLUTE AUTO 0.33 K/mm3 (0.16-1.47); MONOCYTES PERCENT AUTO 3 % (4-13); Mean Corpuscular HGB 28.6 pg (26.0-34.0); Mean Corpuscular HGB Conc 31.8 g/dL (31.5-36.5); Mean Corpuscular Volume 90 fL (80-100); NEUTROPHILS PERCENT AUTO 87 % (41-73); Platelet Count 151 K/mm3 (150-400); RDW Coefficient Variation 19.1 % (11.7-14.2); RDW Standard Deviation 62.2 fL (35.1-46.3); Red Blood Cell Count 3.36 M/mm3 (4.30-5.90); White Blood Cell Count 9.84 K/mm3 (4.00-11.30)
[2022-08-28 06:04] LABS: Albumin, Blood 1.6 g/dL (3.4-5.0); Albumin/Globulin Ratio 0.4 (0.8-1.8); Bilirubin, Total 0.3 mg/dL (0.1-1.0); Bun/Creatinine Ratio 21.9 (12.0-20.0); Calcium, Blood 8.1 mg/dL (8.5-10.1); Creatinine, Blood 1.51 mg/dL (0.60-1.20); Globulin, Blood 4.1 g/dL (2.2-4.0); Potassium, Blood 3.9 mmol/L (3.5-5.5); Total Protein, Blood 5.7 g/dL (6.4-8.2)
[2022-08-28] MEDS ORDERED: TRAM50 PO (07:46)
[2022-08-28] MEDS ORDERED: Percocet 5-3251 EACH PO (07:46)
--- NOTE | 2022-08-28 08:03 | NUR ---
Patient arrived via stretcher from ER. Pt is quiet, has a very soft voice. He demies being [place] and answers questions apppropriately. He is alert to self and people but seems a bit confused, felt his dogs were in the room. Pt has multiple skin ulcers nilton lower extremities, scabs nilton upper thighs and a large unstageable decub to rt lower hip and buttocks, black eschar skin. See pictures. Pt IV fluids started, antibiotics started. Pt denies pain, refused tylenol. Pt is very shakey, has difficulty holding glass. Do was placed in ER, yellow urine. Call light in reach, oriented to room. Family to bring in med list to verify. Pt stated he had not been taking his meds. Family reports increased weakness. Report given to Tamela Wagner.
--- NOTE | 2022-08-28 09:06 | NUR ---
NOTIFIED DR TURNER IN PERSON OF PT'S LOW BP'S THIS MORNING.
--- NOTE | 2022-08-28 09:46 | NUR ---
NOTIFIED DR. DO IN PERSON THAT PT'S CARBIDOPA LEVODOPA IS NOT ORDERED YET AND THAT PT'S MED LIST HAS BEEN UPDATED OF THIS MORNING.
--- NOTE | 2022-08-28 16:31 | NUR ---
WOUND CARE MR. PIERRE IS A MUTAL PT OF WOUND CLINIC AND KNOWN TO THIS RN. BLE ULCERS ARE ARTERIAL IN NATURE AND APPEAR AT BASELINE. PT IS SEEN AT IR AN OUTPATIENT. BL ISCHIAL AND COCCYX WOUND ARE NEW. BL ISCHIAL WOUND NEED SURGICAL DEBRIDEMENT. THE RIGHT ISCHIAL IS MORE SEVERE. SURGICAL CONSULT PLACED PER DR. DO. WOUND PHOTOS/ASSESMENTS IN HARD CHART ORDERS IN [facility]. ALL WOUND WITH THE EXEPTION OF R. ISCHIAL WERE CLEANSED WITH NS, MEDIHONEY TO WOUND BED, COVERED BORDERED FOAM. NO MEDIHONEY TO R ISCHIAL PENDING SURGICAL EVALUATION. PT TOLERATED WELL
--- NOTE | 2022-08-28 18:12 | NUR ---
MILY, CUT OFF MACHINE OPERATOR CALLED DR. DO AFTER RECEIVING NURSE NOTIFY NOTE TO "REQUEST PRIMARY TEAM FOR ANESTHESIA CLEARANCE." MD DO VERBALIZED HE WOULD LOOK AT HIS CHART PER SURGERY'S REQUEST.
--- NOTE | 2022-08-28 18:34 | NUR ---
SHIFT SUMMARY- WOUND CARE PERFORMED THIS SHIFT BY DIAGNOSTIC IMAGING MANAGER. PT'S PAIN IS MODERATELY CONTROLLED WITH PAIN MEDS. PT REFUSED DINNER. AAOX3 THIS SHIFT. PT DOES GET CONFUSED ABOUT HIS SITUATION INTERMITTENTLY.
--- NOTE | 2022-08-28 18:37 | NUR ---
NAVARRO CATHETER CARE PERFORMED THIS SHIFT PER PROTOCOL.
--- NOTE | 2022-08-29 05:31 | NUR ---
SHIFT SUMMARY; NO ACUTE CHANGES OVERNIGHT. THE PT RESTED IN THE BED FOR THE ENTIRETY OF THE NIGHT. THE PT IS AXO X2, SLOW TO RESPOND AND SOFT SPOKEN. THE PT IS UNABLE TO SHIFT HIMSELF IN BED, q2 TURNS. NPO AFTER MIDNIGHT IN PREPARATION FOR AN I&D TODAY. THE PT WAS PLACED ON 1L NC, O2 SATS WERE 89% ON RA, >92% O2 SATS ON 1L NC. THE PT DENIES ANY PAIN, CHEST PAIN/PRESSURE, N/V OR SOB T/O THE SHIFT. CURRENTLY THE PT IS RESTING IN BED WITH THE BED IN THE LOWEST POSITION AND THE CALL LIGHT AT BEDSIDE. NAVARRO IN PLACE, PATENT AND DRAINING TO GRAVITY.
[2022-08-29 06:07] LABS: Hemoglobin 8.6 g/dL (13.5-17.5); Mean Corpuscular HGB Conc 31.9 g/dL (31.5-36.5); Mean Corpuscular Volume 91 fL (80-100); Mean Platelet Volume 9.8 fL (9.1-12.4); Platelet Count 161 K/mm3 (150-400); RDW Coefficient Variation 19.5 % (11.7-14.2); Red Blood Cell Count 2.97 M/mm3 (4.30-5.90); White Blood Cell Count 7.73 K/mm3 (4.00-11.30)
[2022-08-29 07:32] LABS: Albumin, Blood 1.6 g/dL (3.4-5.0); Albumin/Globulin Ratio 0.4 (0.8-1.8); Bilirubin, Total 0.3 mg/dL (0.1-1.0); Bun/Creatinine Ratio 26.8 (12.0-20.0); Calcium, Blood 8.1 mg/dL (8.5-10.1); Creatinine, Blood 1.53 mg/dL (0.60-1.20); Globulin, Blood 3.6 g/dL (2.2-4.0); Magnesium, Blood 1.8 mg/dL (1.6-2.4); Phosphorus, Blood 4.2 mg/dL (2.5-4.9); Potassium, Blood 4.2 mmol/L (3.5-5.5); Total Protein, Blood 5.2 g/dL (6.4-8.2)
--- NOTE | 2022-08-29 13:02 | NUR ---
CASE CONF WITH DR DO. PT HAD A SUDDEN DECLINE OVERNIGHT, FAMILY HAS DECIDED TO DECLINE SURGERY AND HAS QUESTIONS ABOUT COMFORT CARE AND HOSPICE. MET WITH PT DAUGHTERS AND , MULTIPLE QUESTIONS ABOUT CC AND HOSPICE, PROVIDED EDUCATION ON HOSPICE PHILOSOPHY, TEAM APPROACH, RESOURCES AND WHAT THEY PROVIDE. FAMILY DECIDES TO MOVE FORWARD WITH MAKING PT CC AND ADMIT TO HOSPICE UPON DC. PT IS CURRENTLY ON [facility] FOR HH, FAMILY FIRST CHOICE WOULD BE TO STAY WITH [facility] FOR HOSPICE AND [facility] SECOND CHOICE. CHOICE LETTER WAS PROVIDED TO FAMILY. CALLS PLACED TO [facility], [facility] AND [facility] FOR SOONEST ADMISSION OPPORTUNITY. [facility] IS SEVERAL DAYS OUT, [facility] HAS POTENTIAL OPENINGS TODAY OR TOMORROW, WAITING FOR RESPONSE FROM [facility]. CALL PLACED TO DR DO TO UPDATE ON CONVERSATION WITH FAMILY, HE WILL DC WHEN A DC PLAN IS IN PLACE WITH HOSPICE. V.O. DR DO TO PLACE PT ON COMFORT CARE, CC ORDERS PLACED. PALLIATIVE CARE WILL CONT TO WORK WIOTH CM AND FOLLOW.
--- NOTE | 2022-08-29 14:14 | NUR ---
2ND CALL PLACED TO [facility], PER EDENILSON, [facility] CAN ADMIT PT ON THURSDAY 08/31 OR FRIDAY 09/01. CASE CONF WITH TIN ROWE, UPDATED HER ON PT FAMILY CHOICE FOR HOSPICE. SHE WILL SEND OVER REFERRAL PACKET TODAY SHAREE ROWE WILL FOLLOW UP WITH [facility] AND FAMILY ON WEDNESDAY. CALL PLACED TO PT DAUGHTER, SAUNDRA AND UPDATED HER ON DC PLAN, SHE VU.
--- NOTE | 2022-08-29 17:43 | NUR ---
SHIFT SUMMARY: PATIENT ALERT AND ORIENTED TO SELF AND FAMILY MEMBER. OTHERWISE, CONFUSED AND VERY SLOW TO RESPOND. MIPELEX DRESSING CHANGED TO COCCYX, R/L BUTTOCKS AND APPLIED MIPELEX DRESSING PROTECTOR TO BILATERAL HEELS. PATIENT ON COMFORT CARE MEASURE. MEDICATED X1 c ROXANOL. PATIENT HAS BEEN RESTING IN BED COMFORTABLY T/O SHIFT. Q2 TURN, ORAL CARE T/O SHIFT. PATIENT ON O2 3L VIA NC c SPO2 OF 91%. RR EVEN AND UNLABORED. NAVARRO PATENT DRAINING c YELLOW URINE TO GRAVITY. REFUSED LUNCH AND DINNER. CALL LIGHT IN REACH.
[2022-08-30 03:52] LABS: Vancomycin, Trough 24.6 ug/mL (5.0-10.0)
--- NOTE | 2022-08-30 04:43 | NUR ---
SHIFT SUMMARY; NO ACUTE CHANGES OVERNIGHT. THE PT IS ON COMFORT CARE, 3L NC IN PLACE FOR COMFORT. THE PT WAS MEDICATED ONCE LAST NIGHT FOR AIRHUNGER. THE PT ONLY RESPONDS TO PAIN AT THIS TIME. Q2 TURNS, CATH CARE DONE. CURRENTLY THE PT IS RESTING IN BED WITH THE BED IN THE LOWEST POSITION AND THE CALL LIGHT AT BEDSIDE.
--- NOTE | 2022-08-30 16:38 | NUR ---
CASE CONF WITH PT NURSE, UNEVENTFUL NIGHT, PT REMAINS UNRESPONSIVE WITH MINIMAL URINE OUTPUT AND REQUIRED 1 DOSE OF ROXANOL DURING GIN CLERK. ASSISTED RN WITH REPOSITIONING THE PT, PT GRIMACES WHEN HE IS MOVED. ENCOURAGED RN TO MEDICATE PT 30 MINUTES PRIOR TO MOVING, POSITIONING OR ROLLING THE PT AND SHE VU. WILL CALL AND UPDATE FAMILY ON PT STATUS.
--- NOTE | 2022-08-30 17:42 | NUR ---
CALL PLACED TO PT DAUGHTER, SAUNDRA. UPDATE GIVEN ON PT STATUS AND COMFORT. ANSWERED HER QUESTIONS. PT REMAINS UNRESPONSIVE, FACE IS RELAXED AND RESP EVEN AND UNLABORED. PT APPEARS TO BE COMF, DOES NOT APPEAR IMMINENT AT THIS TIME. NURSING STAFF WILL NOTIFY FAMILY IF PT CHANGES.
--- NOTE | 2022-08-30 17:43 | NUR ---
SHIFT SUMMARY: PATIENT ON COMFORT CARE MEASURE. PATIENT IS NONVERBAL, ONLY RESPOND TO PAIN WHEN REPOSITIONING, OTHERWISE LAYING IN BED RESTING APPEARS TO BE COMFORTABLE c EYES CLOSED. NO FACIAL GRIMACES, OR STIFFINESS NOTED T/O SHIFT. RR EVEN AND UNLABORED. ORAL CARE AND REPOSITIONED FOR COMFORT. MEDICATED X1 c 10 MG OF ROXANOL THIS SHIFT. NAVARRO PATENT DRAINING YELLOW URINE TO GRAVITY. DAUGHTER (CARLYLE) CAME BY AND SAT WITH THE PATIENT FOR ABOUT 10 MINS. UPDATE GIVEN TO DAUGHTER REGARDING PATIENT CONDITION. PALLIATIVE CARE RN CAME BY X2 TODAY AND CHECK c THE PATIENT. CALL LIGHT IN REACH.
--- NOTE | 2022-08-31 05:06 | NUR ---
SHIFT SUMMARY 82 YR M ON COMFORT CARE. NO ACUTE CHANGES THIS SHIFT. PT HAS SLEPT FOR ENTIRE SHIFT AND HAS SHOWN NO SIGNS OF PAIN OR DISTRESS. NO MEDS WERE GIVEN THIS SHIFT.
[2022-08-31] MEDS ORDERED: MORP20L SL (13:11)
[2022-08-31] MEDS ORDERED: ATROPINE SULFATE2 M1 SL (13:12)
[2022-08-31] MEDS ORDERED: Haldol Dec50 MG/1 ML PO (13:13)
[2022-08-31] MEDS ORDERED: Ativan1 MG PO (13:14)
[2022-08-31] MEDS ORDERED: PHENERGAN25 MG PR (13:15)
[2022-08-31] MEDS ORDERED: ONDA4ODT MM (13:15)
[2022-08-31] MEDS ORDERED: TRANSDERM-SCOP1 EA13 TOP (13:16)
--- NOTE | 2022-08-31 14:28 | NUR ---
DISCHARGE PATIENT TRANSPORTED VIA GURNEY BY [facility]. DISCHARGE INSTRUCTIONS MANAGED BY HOSPICE COMPANY. BELONGINGS SENT WITH PATIENT. IV REMOVED WITHOUT DIFFICULTY. PATIENT MEDICATED PRIOR TO TRANSPORT. PATIENT HAS A LOT OF PAIN WITH MOVEMENT. MEDICATIONS FAXED TO HOSPICE AGENCY. THEY WILL SCHEDULE ANY ADDITIONAL FOLLOW UP NEEDS.
== END 2022-08-31 14:27 | disposition hospice, home (50) | DRG 603 ==
LOC: ER 21:52 → MEDS 21:53
PROVIDERS: Family Medicine; Student in an Organized Health Care Education/Training Program; ADMIT Internal Medicine
PROC: 0T9B70Z Drainage of Bladder with Drainage Device, Via Natural or Artificial Opening (ICD-10-PCS; principal; 2022-08-28)
DX: L03.115 Cellulitis of right lower limb (principal); E44.0 Moderate protein-calorie malnutrition; N25.81 Secondary hyperparathyroidism of renal origin; L03.116 Cellulitis of left lower limb; N40.1 Benign prostatic hyperplasia with lower urinary tract symptoms; K90.0 Celiac disease; R33.8 Other retention of urine; N18.30 Chronic kidney disease, stage 3 unspecified; L89.229 Pressure ulcer of left hip, unspecified stage; Z51.5 Encounter for palliative care; Z66 Do not resuscitate; E88.09 Other disorders of plasma-protein metabolism, not elsewhere classified; L89.310 Pressure ulcer of right buttock, unstageable; L89.890 Pressure ulcer of other site, unstageable; L89.152 Pressure ulcer of sacral region, stage 2; I12.9 Hypertensive chronic kidney disease with stage 1 through stage 4 chronic kidney disease, or unspecified chronic kidney disease; I95.9 Hypotension, unspecified; M19.90 Unspecified osteoarthritis, unspecified site; M81.0 Age-related osteoporosis without current pathological fracture; G20 Parkinson's disease; E78.00 Pure hypercholesterolemia, unspecified; E11.51 Type 2 diabetes mellitus with diabetic peripheral angiopathy without gangrene; D63.1 Anemia in chronic kidney disease; E11.22 Type 2 diabetes mellitus with diabetic chronic kidney disease; E55.9 Vitamin D deficiency, unspecified; R62.7 Adult failure to thrive; B95.62 Methicillin resistant Staphylococcus aureus infection as the cause of diseases classified elsewhere; Z20.822 Contact with and (suspected) exposure to COVID-19; Z96.642 Presence of left artificial hip joint; Z95.828 Presence of other vascular implants and grafts; Z88.8 Allergy status to other drugs, medicaments and biological substances; Z79.899 Other long term (current) drug therapy; Z79.811 Long term (current) use of aromatase inhibitors; Z79.02 Long term (current) use of antithrombotics/antiplatelets; Z79.82 Long term (current) use of aspirin; Z68.22 Body mass index [BMI] 22.0-22.9, adult; Z98.890 Other specified postprocedural states; Z87.891 Personal history of nicotine dependence; Z79.891 Long term (current) use of opiate analgesic
CPT/HCPCS: 0241U; 36415; 51702; 51798; 80053; 80202; 81001; 83605; 83735; 83880; 84100; 84443; 84484; 85025; 85027; 93005; 93010; 94760; 96361; 96374; 97110; 97163; 97166; 97530; 97535; 99285-25; A9270; J0295; J0696; J1650; J3370; J3475; J7030; J7050; P9047